=== PATIENT | female | born 1980 | race Caucasian/White ===

== ENCOUNTER 2018-07-19 21:21 | Outpatient (CLI) | payer OTHER | END 2018-07-20 13:41 | disposition home or self-care (01) | LOC: OBS/DEL 21:21 | DX: O24.410 Gestational diabetes mellitus in pregnancy, diet controlled (principal); O10.913 Unspecified pre-existing hypertension complicating pregnancy, third trimester; Z34.83 Encounter for supervision of other normal pregnancy, third trimester ==

== ENCOUNTER 2018-07-26 21:20 | Inpatient (IN) | payer OTHER ==
[~2018-07-26] VITALS: Ht 167.6 cm; Wt 89.5 kg
[2018-07-27] MEDS ORDERED: PRENATAL 19 TA1 EACH PO (11:31)
[2018-07-27] MEDS ORDERED: ASA81 MG PO (11:32)
== END 2018-07-29 19:52 | DRG 775 ==
LOC: LDR 21:20 → OB/GYN 07-28 03:51 → SEC-K 07-28 04:02 → OB/GYN 07-28 04:03
PROC: 4A1HXCZ Monitoring of Products of Conception, Cardiac Rate, External Approach (ICD-10-PCS; 2018-07-26)
PROC: 10E0XZZ Delivery of Products of Conception, External Approach (ICD-10-PCS; principal; 2018-07-27)
PROC: 0UQGXZZ Repair Vagina, External Approach (ICD-10-PCS; 2018-07-27)
PROC: 4A033R1 Measurement of Arterial Saturation, Peripheral, Percutaneous Approach (ICD-10-PCS; 2018-07-27)
DX: O71.4 Obstetric high vaginal laceration alone (principal); Z3A.39 39 weeks gestation of pregnancy; Z37.0 Single live birth

== ENCOUNTER 2018-08-03 00:43 | Inpatient (IN) | payer OTHER ==
[~2018-08-03] VITALS: Ht 167.6 cm; Wt 81.6 kg
[~2018-08-03 00:43] MED LIST: ASA81 MG PO; PRENATAL 19 TA1 EACH PO
== END 2018-08-04 18:05 | disposition home or self-care (01) | DRG 776 ==
LOC: ER 00:43 → SEC-K 11:51 → OB/GYN 13:28
PROC: 30233N1 Transfusion of Nonautologous Red Blood Cells into Peripheral Vein, Percutaneous Approach (ICD-10-PCS; principal; 2018-08-03)
PROC: BW4GZZZ Ultrasonography of Pelvic Region (ICD-10-PCS; 2018-08-03)
DX: O72.1 Other immediate postpartum hemorrhage (principal)

== ENCOUNTER 2019-01-08 05:49 | Emergency (ER) | payer OTHER ==
[~2019-01-08] VITALS: Ht 167.6 cm; Wt 78.0 kg
== END 2019-01-08 09:59 | disposition home or self-care (01) ==
LOC: ER 05:49
DX: O03.9 Complete or unspecified spontaneous abortion without complication (principal)

== ENCOUNTER 2020-06-12 06:50 | Inpatient (IN) | payer OTHER ==
[~2020-06-12] VITALS: Ht 167.6 cm; Wt 93.4 kg
[2020-06-12] MEDS ORDERED: BIOTIN1 MG PO (08:27)
[2020-06-12] MEDS ORDERED: ADULT LOW DOSE81 M1 PO (08:28)
== END 2020-06-14 14:29 | disposition home or self-care (01) | DRG 788 ==
LOC: LDR 06:50 → OB/GYN 06:50
PROVIDERS: ADMIT Obstetrics & Gynecology; ATTEND Obstetrics & Gynecology
PROC: 3E033VJ Introduction of Other Hormone into Peripheral Vein, Percutaneous Approach (ICD-10-PCS; 2020-06-12)
PROC: 4A1HXFZ Monitoring of Products of Conception, Cardiac Rhythm, External Approach (ICD-10-PCS; 2020-06-12)
PROC: 10D00Z1 Extraction of Products of Conception, Low, Open Approach (ICD-10-PCS; principal; 2020-06-12 14:00)
DX: O61.0 Failed medical induction of labor (principal); O76 Abnormality in fetal heart rate and rhythm complicating labor and delivery; Z3A.40 40 weeks gestation of pregnancy; Z37.0 Single live birth; Z20.828 Contact with and (suspected) exposure to other viral communicable diseases